=== PATIENT | female | born 1990 | race Caucasian/White ===

== ENCOUNTER 2022-07-15 23:02 | Emergency (ER) | payer MEDICAID ==
[~2022-07-15] VITALS: Ht 160 cm; Wt 145.1 kg
[2022-07-15 23:25] VITALS: BP 111/54
--- NOTE | 2022-07-15 23:28 | NUR ---
TO LOBBY A/W BED AMBULATORY
[2022-07-16 01:40] LABS: BASOPHILS # (AUTO) 0.1 K/uL (0.00-0.22); BASOPHILS % (AUTO) 0.6 % (0.0-2.0); EOSINOPHILS # (AUTO) 0.3 K/uL (0-0.4); EOSINOPHILS % (AUTO) 2.3 % (0.0-4.0); HEMATOCRIT 39.7 % (36-48); HEMOGLOBIN 13.2 g/dL (12.0-16.0); LYMPHOCYTES # (AUTO) 4.7 K/uL (2.5-16.5); LYMPHOCYTES % (AUTO) 43.8 % (20.5-51.1); MEAN CORPUSCULAR HEMOGLOBIN 28 pg (27-31); MEAN CORPUSCULAR HGB CONC 33 g/dL (33-37); MEAN CORPUSCULAR VOLUME 84.6 fL (80-94); MONOCYTES # (AUTO) 0.6 K/uL (0.8-1.0); MONOCYTES % (AUTO) 5.7 % (1.7-9.3); NEUTROPHILS # (AUTO) 5.1 K/uL (1.8-7.7); NEUTROPHILS % (AUTO) 47.6 % (42.2-75.2); PLATELET COUNT (AUTO) 326 K/uL (140-450); RED CELL DISTRIBUTION WIDTH 13.5 % (11.6-13.7); WHITE BLOOD COUNT (AUTO) 10.8 K/uL (4.8-10.8)
[2022-07-16 01:53] LABS: PROTHROMBIN TIME 10.8 secs (10.8-13.4)
--- NOTE | 2022-07-16 02:06 | NUR ---
Dr. Marks at bedside assessing patient.
--- NOTE | 2022-07-16 02:06 | NUR ---
Patient resting in bed, A/Ox4, chest rise and fall symmetrical, no s/s of pain or s/s of distress, on monitor.
[2022-07-16] MEDS ORDERED: FLONAS NS (02:20)
[2022-07-16] MEDS ORDERED: ACET-10509 PO (02:20)
[2022-07-16] MEDS ORDERED: PHENYLEPHRINE 0.5% 15 ML BTL NS ONE (02:20)
[2022-07-16 02:30] VITALS: BP 128/74
== END 2022-07-16 02:30 | disposition home or self-care (01) ==
LOC: MED 23:02
DX: R04.0 Epistaxis (principal); R51.9 Headache, unspecified; Z79.899 Other long term (current) drug therapy
CPT/HCPCS: 36415; 85025; 85610; 85730; 99283